=== PATIENT | female | born 1985 | race Two or more races ===

== ENCOUNTER 2017-02-11 11:13 | Emergency (ER) | payer OTHER ==
[2017-02-11 11:18] VITALS: BP 121/57; PULSE 72; TEMP 98.3; BMI 20.7
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
[2017-02-11] MEDS ORDERED: KETOROLAC TROMETHAMINE 60 MG/2 ML VIAL IM ONE (13:43)
[2017-02-11] MEDS ORDERED: KETOROLAC TROMETHAMINE 60 MG/2 ML VIAL ONE (14:26)
== END 2017-02-11 15:01 | disposition home or self-care (01) ==
LOC: JERFT 11:13
PROC: 3E0233Z Introduction of Anti-inflammatory into Muscle, Percutaneous Approach (ICD-10-PCS; principal; 2017-02-11)
DX: S22.32XA Fracture of one rib, left side, initial encounter for closed fracture (principal); V43.52XA Car driver injured in collision with other type car in traffic accident, initial encounter; W22.11XA Striking against or struck by driver side automobile airbag, initial encounter; Y92.414 Local residential or business street as the place of occurrence of the external cause; Y93.89 Activity, other specified; Y99.9 Unspecified external cause status
CPT/HCPCS: 71020-TC; 71111-TC; 73000-TC-LT; 73030-TC-LT; 73560-TC-RT; 84703; 99281-25

== ENCOUNTER 2019-10-09 10:50 | Emergency (ER) | payer OTHER ==
[2019-10-09 10:53] VITALS: BP 111/72; PULSE 84; TEMP 98; BMI 26.6
--- NOTE | 2019-10-09 12:40 | PDOC ---
History of Present Illness - General Chief Complaint: Respiratory Stated Complaint: COLD SYMPTOMS Time Seen by Provider: 10/09/19 11:21 History Source: Patient - History of Present Illness Timing/Duration: reports: other Past History - Past Medical History Allergies/Adverse Reactions: Allergies Allergy/AdvReac Type Severity Reaction Status Date / Time No Known Drug Allergies Allergy Verified 10/09/19 10:53 Home Medications: Ambulatory Orders Ibuprofen 800 mg PO TID #30 tablet 02/11/17 Asthma: No Cancer: No Cardiac Disorders: No COPD: No Diabetes: No HTN: No Seizures: No Thyroid Disease: No - Reproductive History (#): 3 Para: 3 - Psycho Social/Smoking Cessation Hx Smoking Status: No Smoking History: Never smoked Have you smoked in the past 12 months: No Number of Cigarettes Smoked Daily: 0 Hx Alcohol Use: No Drug/Substance Use Hx: No Substance Use Type: None Hx Substance Use Treatment: No Review of Systems - Review of Systems Constitutional: Yes: Fever, Malaise HEENTM: No: Ear Pain, Throat Pain Respiratory: Yes: Cough. No: Shortness of Breath *Physical Exam - Vital Signs Last Vital Signs Temp Pulse Resp BP Pulse Ox 98 F 84 18 111/72 100 10/09/19 10:51 10/09/19 10:51 10/09/19 10:51 10/09/19 10:51 10/09/19 10:51 - Physical Exam General Appearance: Yes: Appropriately Dressed. No: Apparent Distress HEENT: positive: Normal ENT Inspection, Normal Voice, TMs Normal, Pharynx Normal. negative: Scleral Icterus (R), Scleral Icterus (L) Neck: positive: Supple Respiratory/Chest: positive: Lungs Clear, Normal Breath Sounds. negative: Respiratory Distress Cardiovascular: positive: Regular Rate, S1, S2 Integumentary: positive: Dry, Warm Neurologic: positive: Fully Oriented, Alert, Normal Mood/Affect Medical Decision Making - Medical Decision Making 10/09/19 12:40 4-year-old female no significant history here with body aches with headache cough and low-grade fever x3 to 4 days. No shortness of breath or chest pain. Not currently taking anything for her symptoms. see exam Viral syndrome Possible flu but outside window for tamiflu so no utility in swab Exam wnl -Dc w/ supportive tx Discharge - Discharge Information Problems reviewed: Yes Clinical Impression/Diagnosis: Viral syndrome Condition: Good Disposition: HOME - Follow up/Referral Referrals: ON STAFF,NOT [Primary Care Provider] - - Patient Discharge Instructions Patient Printed Discharge Instructions: DI for Viral Syndrome - Post Discharge Activity Work/Back to School Note: Back to Work
== END 2019-10-09 12:19 | disposition home or self-care (01) ==
LOC: JERFT 10:50
DX: B34.9 Viral infection, unspecified (principal)
CPT/HCPCS: 99281-25

== ENCOUNTER 2020-04-04 14:47 | Emergency (ER) | payer OTHER ==
[2020-04-04 14:56] VITALS: BP 112/66; PULSE 82; TEMP 98; BMI 23.6
--- NOTE | 2020-04-04 14:58 | PDOC ---
Rapid Medical Evaluation Time Seen by Provider: 04/04/20 14:53 Medical Evaluation: Allergies Allergy/AdvReac Type Severity Reaction Status Date / Time No Known Drug Allergies Allergy Verified 10/09/19 10:53 04/04/20 14:54 Pt reports falling and hitting her head last night. States she lost consciousness at that time. States she now has a headache and upper back pain. Also states that her chest wall hurts when she breathes. Exam: TTP upper L back no midline tenderness Orders: Head CT, back, rib x-rays Pt to proceed to the ER for further evaluation Discharge Disposition - Diagnosis Fall - Referrals - Patient Instructions - Post Discharge Activity
--- NOTE | 2020-04-04 15:29 | PDOC ---
History of Present Illness - General Chief Complaint: Injury Stated Complaint: NECK PAIN Time Seen by Provider: 04/04/20 14:53 History Source: Patient Exam Limitations: No Limitations - History of Present Illness Initial Comments: 04/04/20 15:26 This 34-year-old female no significant past medical history presenting to the ED after syncopal rising and falling hitting her head. Patient states that she began to feel lightheaded last night when outside for some fresh air and pro ceeded to syncopized she fell backwards striking the back of her head. Patient states that her family she woke up to her family members about 5 minutes later. She is complaining of headache shoulder pain as well as left rib pain and pleuritic chest pain worse with breathing. Patient is also complaining of mild right lower quadrant pain and suprapubic pain without dysuria or discharge LMP February 11. Patient came to the ED today because she felt lightheaded again but did not syncopized. Patient has not noticed any palpitations or chest pain prior to syncopal rising. Pt otherwise denies: fevers, chills, neck pain, shortness of breath, palpitations, back pain, nausea, vomiting, diarrhea, constipation. Past History - Medical History Allergies/Adverse Reactions: Allergies Allergy/AdvReac Type Severity Reaction Status Date / Time No Known Drug Allergies Allergy Verified 04/04/20 15:04 Home Medications: Ambulatory Orders NK [No Known Home Medication] 10/09/19 Asthma: No Cancer: No Cardiac Disorders: No COPD: No Diabetes: No HTN: No Seizures: No Thyroid Disease: No - Reproductive History (#): 3 Para: 3 - Psycho-Social/Smoking History Smoking Status: No Smoking History: Never smoked Have you smoked in the past 12 months: No Number of Cigarettes Smoked Daily: 0 - Substance Abuse Hx (Audit-C & DAST Scrn) How often the patient has a drink containing alcohol: Never Score: In Men: 4 or > Positive; In Women: 3 or > Positive: 0 Screen Result (Pos requires Nsg. Audit-10AR): Negative *Physical Exam - Vital Signs Last Vital Signs Temp Pulse Resp BP Pulse Ox 98 F 82 18 112/66 100 04/04/20 14:54 04/04/20 14:54 04/04/20 14:54 04/04/20 14:54 04/04/20 14:54 - Physical Exam 04/04/20 15:28 Gen: AAOx 3, no acute distress, comfortable, no signs of respiratory distress HENT: atraumatic, normocephalic with no laceration or contusion. Nasal mucosa without erythema. Oropharynx without erythema or exudates. Mucous membranes moist. EYES: PERRL, EOM intact, conjunctiva pink NECK: supple; trachea midline; no JVD, no lymphadenopathy, or thyromegaly CV: RRR no murmurs, gallops, or rubs. CHEST: CTA b/l no wheezing, rales or rhonchi ABD: +BS/ND. no TTP; soft, no rebound, no guarding EXTREMITY: no cyanosis or erythema. 2+ dorsalis pedis, posterior tibial, and radial pulse. No pedal edema; no calf swelling or tenderness SKIN: no rash, warm and dry, no diaphoresis HEME: no purpura or ecchymosis NEURO: normal speech, CN II-XII intact, sensation intact, normal gait, no cerebellar deficits MS: 5/5 strength in all extremities, FROM intact in all extremities. ED Treatment Course - LABORATORY CBC & Chemistry Diagram: 04/04/20 15:41 04/04/20 15:45 Medical Decision Making - Medical Decision Making 04/04/20 15:28 34-year-old female no past medical history presenting with syncopal event as well as headache back pain and lower abdominal pain. Vital signs stable PERC negative Benign neuro exam Will obtain labs EKG head CT chest x-ray rib x-ray Will reassess based on results Beta HCG negative Labs WNL, trop negative UA negative CT head negative XRs negative EKG NSR Pt reports improvement in pain with meds. Appears well, repeat exam WNL Patient is safe and stable for discharge with close follow-up and strict return precautions patient to follow-up with PCP and neurology. Supportive care instructions explained and given to pt. Reasons to return emergently to ER explained and given. Importance of follow up with PMD and other specialists as indicated stressed to pt. Pt verbalized understanding of instructions. Pt to follow up with PMD in 2 days. Discharge - Discharge Information Problems reviewed: Yes Clinical Impression/Diagnosis: Fall Qualifiers: Encounter type: initial encounter Qualified Code(s): W19.XXXA - Unspecified fall, initial encounter Condition: Stable Disposition: HOME - Admission No - Follow up/Referral - Patient Discharge Instructions Patient Printed Discharge Instructions: DI for Syncope in Adults (Fainting) Additional Instructions: YOU MUST FOLLOW UP WITH YOUR PCP WITHOUT FAIL - Post Discharge Activity Work/Back to School Note: Back to Work
--- NOTE | 2020-04-04 16:06 | EKG ---
Test Reason : Blood Pressure : / mmHG Vent. Rate : 068 BPM Atrial Rate : 068 BPM P-R Int : 164 ms QRS Dur : 070 ms QT Int : 392 ms P-R-T Axes : 040 029 026 degrees QTc Int : 416 ms NORMAL SINUS RHYTHM NORMAL ECG WHEN COMPARED WITH ECG OF 16-OCT-2015 19:45, NO SIGNIFICANT CHANGE WAS FOUND Confirmed by MD NIRU, KAYLENE ([id number]) on 04/04/2020 4:06:33 PM Referred By: Confirmed By:KAYLENE MARRUFO MD
[2020-04-04 16:24] LABS: BASO % 0.7 % (0-2.0); EOS % 0.9 % (0-4.5); HEMATOCRIT 39.3 % (32.4-45.2); HEMOGLOBIN 13.1 GM/dL (10.7-15.3); LYMPH % 32.4 % (8-40); MCH 29.1 pg (25.7-33.7); MCHC 33.3 g/dl (32.0-36.0); MEAN CELL VOLUME 87.5 fl (80-96); MEAN PLT VOLUME 8.1 fl (7.5-11.1); MONO % 8.5 % (3.8-10.2); NEUT % 57.5 % (42.8-82.8); PLATELET COUNT 280 K/MM3 (134-434); RBC 4.49 M/mm3 (3.60-5.2); RDW 12.5 % (11.6-15.6); WHITE BLOOD COUNT 6.2 K/mm3 (4.0-10.0)
[2020-04-04 16:31] LABS: INR 0.99 (0.83-1.09); PROTHROMBIN TIME (PATIENT) 11.7 SEC (9.7-13.0)
[2020-04-04 16:34] LABS: ACTIVATED PTT 25.5 SECONDS (25.2-36.5)
[2020-04-04 16:54] LABS: ALBUMIN 3.2 g/dl (3.4-5.0); ALK PHOS 58 U/L (45-117); ANION GAP 5 MMOL/L (8-16); BILIRUBIN,TOTAL 0.5 mg/dL (0.2-1); BLOOD UREA NITROGEN 9.7 mg/dL (7-18); CALCIUM 8.7 mg/dL (8.5-10.1); CHLORIDE 109 mmol/L (98-107); CO2 26 mmol/L (21-32); CREATININE 0.8 mg/dL (0.55-1.3); GLUCOSE,RANDOM 85 mg/dL (74-106); LIPASE 88 U/L (73-393); POTASSIUM 3.9 mmol/L (3.5-5.1); SGOT/AST 12 U/L (15-37); SGPT/ALT 16 U/L (13-61); SODIUM 141 mmol/L (136-145); TOT PROT 6.9 g/dl (6.4-8.2)
[2020-04-04] MEDS ORDERED: ACETAMINOPHEN 500 MG TABLET (FP) PO ONE (17:32)
[2020-04-04] MEDS ORDERED: FAMOTIDINE 10 MG TABLET PO ONE (17:33)
[2020-04-04] MEDS ORDERED: FAMOTIDINE 20 MG TABLET ONE (17:44)
[2020-04-04] MEDS ORDERED: ACETAMINOPHEN 325 MG TABLET (FP) ONE (17:44)
[2020-04-04 18:49] LABS: PH,URINE >= 9.0 (5.0-8.0); URINE APPEARANCE Error; URINE BILIRUBIN NEGATIVE (NEGATIVE); URINE COLOR YELLOW; URINE GLUCOSE (UA) NEGATIVE (NEGATIVE); URINE KETONE NEGATIVE (NEGATIVE); URINE LEUK ESTERASE NEGATIVE (NEGATIVE); URINE NITRITE NEGATIVE (NEGATIVE); URINE PROTEIN NEGATIVE (NEGATIVE)
== END 2020-04-04 18:55 | disposition home or self-care (01) ==
LOC: JER 14:47
DX: S06.9X3A Unspecified intracranial injury with loss of consciousness of 1 hour to 5 hours 59 minutes, initial encounter (principal); M54.6 Pain in thoracic spine
CPT/HCPCS: 36415; 70450-TC; 71101-TC-LT-FY; 72070-TC-FY; 80053; 81003; 82550; 83690; 84443; 84484; 84702; 85025; 85610; 85730; 93005; 93010; 99285-25